=== PATIENT | female | born 1935 | race Native Hawaiian/Other Pacific Islander ===

== ENCOUNTER 2018-11-05 19:04 | Emergency (ER) | payer MEDICARE, MEDICAID ==
[2018-11-05 19:05] VITALS: BMI 21.7
[2018-11-05 19:20] VITALS: O2SAT 97
[2018-11-05] MEDS ORDERED: Sodium Chloride 0.9% 500 ML IV ONE ×2 (19:27→20:05)
--- NOTE | 2018-11-05 19:35 | C.PDOC ---
History Of Present Illness 83 year old female presents with 3-4 loose stools a day for 2 weeks. Patient returned from the [facility] 2 weeks ago. Denies fever or sick contact at home. Daughter at bedside states patient has been having soft stools, usually soon after meals but she is able to eat and drink well. Patient admits to eating liberally from street vendors while in the [facility]. Denies Hx of diarrheal illness. She took her blood pressure medication this afternoon instead of morning as she believes it keeps her pressure better controlled in the evening. Time Seen by Provider: 11/05/18 19:16 Chief Complaint (Nursing): GI Problem History Per: Patient History/Exam Limitations: no limitations Onset/Duration Of Symptoms: Days Current Symptoms Are (Timing): Still Present Quality Of Discomfort: Unable To Describe Associated Symptoms: Diarrhea. denies: Fever Exacerbating Factors: Food Alleviating Factors: None Recent travel outside of the [place]: No Abnormal Vaginal Bleeding: No Past Medical History Reviewed: Historical Data, Nursing Documentation, Vital Signs Vital Signs: Last Vital Signs Temp 99.0 F 11/05/18 19:18 Pulse 92 H 11/05/18 19:18 Resp 17 11/05/18 19:18 BP 174/75 H 11/05/18 19:18 Pulse Ox 97 11/05/18 19:18 - Medical History PMH: Diabetes, HTN, Hypercholesterolemia Denies: Depression Surgical History: Cholecystectomy - [facility] IMMOBILIZ/WOUND ATTN NEC (10/19/13) Family History: States: Unknown Family Hx - Social History Hx Tobacco Use: No Hx Alcohol Use: No Hx Substance Use: No - Immunization History Hx Tetanus Toxoid Vaccination: No Hx Influenza Vaccination: No Hx Pneumococcal Vaccination: No Review Of Systems Constitutional: Negative for: Fever Cardiovascular: Negative for: Chest Pain, Palpitations Respiratory: Negative for: Cough, Shortness of Breath Gastrointestinal: Positive for: Diarrhea. Negative for: Nausea, Vomiting Neurological: Negative for: Weakness, Numbness Physical Exam - Physical Exam Appears: Non-toxic, Other (Elderly philippino female) Skin: Normal Color, Warm Head: Atraumatic, Normacephalic Oral Mucosa: Moist Chest: Symmetrical, No Tenderness Cardiovascular: Rhythm Regular Respiratory: Normal Breath Sounds, No Rales, No Rhonchi, No Wheezing Gastrointestinal/Abdominal: Bowel Sounds (Normal), Soft, No Tenderness Back: No CVA Tenderness Neurological/Psych: Oriented x3, Normal Speech ED Course And Treatment - Laboratory Results Result Diagrams: 11/05/18 20:11 11/05/18 21:09 Lab Interpretation: Abnormal (non-L shifted WBC 11.1, slight low K 3.1) ECG: Interpreted By Me, Viewed By Me ECG Rhythm: Sinus Rhythm ECG Interpretation: No Changes From Prior (07/2016) Rate From EC O2 Sat by Pulse Oximetry: 97 (room air) Pulse Ox Interpretation: Normal - Radiology CXR: Interpreted by Me CXR Interpretation: Yes: No Acute Disease - Other Rad abd x 2 X-Ray: Interpreted by Me (nomal stool/gas pattern, no AF levels to suggest active diarrhea) Reevaluation Time: 21:53 Reassessment Condition: Improved - Physician Consult Information Outcome Of Conversation: 2200: d/w Dr. Nahid Camargo, recommends Azithro PO for empiric tx of Traveler's Diarrhea and BRAT diet and d/c home with f/u in his office Thursday @ 11A Medical Decision Making Medical Decision Making: ? Traveler's Diarrha, returned from [facility] 2 wks ago Azithro empirically as increased resistence of Slamonella species to Cipro 1000 mg single PO dose is complete treatment, no Rx for ABX indicated Disposition Doctor Will See Patient In The: Office Counseled Patient/Family Regarding: Studies Performed, Diagnosis - Disposition Disposition: HOME/ ROUTINE Disposition Time: 21:55 Condition: GOOD Forms: [facility] (Sammarinese) - Clinical Impression Clinical Impression: Diarrhea - Scribe Statement The provider has reviewed the documentation as recorded by the Scribmickey Coppola All medical record entries made by the Scribe were at my direction and personally dictated by me. I have reviewed the chart and agree that the record accurately reflects my personal performance of the history, physical exam, medical decision making, and the department course for this patient. I have also personally directed, reviewed, and agree with the discharge instructions and disposition.
[2018-11-05 20:14] LABS: SQUAMOUS EPITHIAL 2 /hpf (0-5); URINE BACTERIA OCC (<OCC); URINE BILIRUBIN NEGATIVE (NEGATIVE); URINE BLOOD NEGATIVE (NEGATIVE); URINE CLARITY Clear (Clear); URINE COLOR Yellow (YELLOW); URINE GLUCOSE (UA) 3+ mg/dL (Normal); URINE LEUKOCYTE ESTERASE NEG Leu/uL (Negative); URINE PROTEIN 2+ mg/dL (NEGATIVE); URINE UROBILINOGEN NORMAL mg/dL (0.2-1.0)
[2018-11-05 20:15] LABS: BASO % 0.4 % (0.0-2.0); EOS # 0.3 K/uL (0.0-0.7); EOS % 2.7 % (0.0-4.0); LYMPH # 2.6 K/uL (1.0-4.3); LYMPH % 23.5 % (20.0-40.0); MEAN CORPUSCULAR HEMOGLOBIN 28.4 pg (27.0-31.0); MONO # 0.8 K/uL (0.0-0.8); MONO % 7.4 % (0.0-10.0); NEUT # 7.3 K/uL (1.8-7.0); RBC 6.07 Mil/uL (3.80-5.20); RED CELL DISTRIBUTION WIDTH 14.9 % (11.5-14.5); WHITE BLOOD COUNT 11.1 K/uL (4.8-10.8)
[2018-11-05 20:20] LABS: HEMOGLOBIN 17.2 g/dL (11.0-16.0)
[2018-11-05 21:26] LABS: ALB/GLOB RATIO 1.3 (1.0-2.1); ALBUMIN 4.5 g/dL (3.5-5.0); ALT/SGPT 36 U/L (9-52); AST/SGOT 48 U/L (14-36); BLOOD UREA NITROGEN 22 mg/dL (7-17); CALCIUM 9.8 mg/dl (8.6-10.4); GFR NON-AFRICAN AMERICAN > 60; LIPASE 131 U/L (23-300)
[2018-11-05 21:38] VITALS: BP 153/70; PULSE 74; RESP 20; TEMP 98
[2018-11-05] MEDS ORDERED: Potassium Chloride 10 mEq ER Tab PO STA (21:46)
[2018-11-05] MEDS ORDERED: Potassium Chloride 20 mEq ER Tab PO ONE (22:04)
--- NOTE | 2018-11-05 22:10 | RAD ---
Date of service: 11/05/2018 PROCEDURE: Radiographs of the chest and abdomen (obstructive series) HISTORY: abd pain COMPARISON: No prior. TECHNIQUE: AP radiograph of the chest, with upright and supine radiographs of the abdomen. 3 views obtained. FINDINGS: CHEST: Lungs: Clear. Cardiovascular: Normal size heart. No pulmonary vascular congestion. There are aortic atherosclerotic calcification present Pleura: No pleural fluid. No pneumothorax. Other findings: None. ABDOMEN AND PELVIS: Bowel: There are small differential air-fluid levels in the abdomen and moderate amount of stool scattered in the colon. Free air: None. Bones: Unremarkable. Other findings: Surgical clips in the right upper quadrant are related to prior cholecystectomy. IMPRESSION: Small differential air-fluid levels in the abdomen which may represent enteritis or diarrhea. No bowel obstruction. Clear lungs.
== END 2018-11-05 23:00 | disposition home or self-care (01) ==
LOC: C.ER 19:04
DX: R19.7 Diarrhea, unspecified (principal); I10 Essential (primary) hypertension; E11.9 Type 2 diabetes mellitus without complications; E78.00 Pure hypercholesterolemia, unspecified
CPT/HCPCS: 74022; 80053; 81001; 82948; 83690; 85025; 87040; 87045; 87177; 87209; 99284; J7040